=== PATIENT | male | born 1945 | race Caucasian/White ===

== ENCOUNTER 2016-04-20 14:41 | Emergency (ER) | payer BC, MEDICARE ==
[2016-04-20 15:35] VITALS: BMI 30.2
[2016-04-20 15:36] VITALS: BP 174/82; PULSE 83; TEMP 97.8
--- NOTE | 2016-04-20 16:11 | DIRPT ---
CLINICAL DATA: Patient status post fall from the ice. Initial encounter. EXAM: LEFT ANKLE COMPLETE - 3+ VIEW COMPARISON: None FINDINGS: There is a displaced oblique fracture through the medial malleolus. There is oblique fracture through distal fibula with mild displacement. Additionally on the lateral view there is suggestion of possible fracture involving the posterior aspect of the distal tibia. Marked overlying soft tissue swelling. Tailor dome appears intact. Widening of the medial clear space suggestive of ligamentous injury. IMPRESSION: Oblique fracture through medial malleolus. Oblique fracture through the distal fibula. Possible fracture through the posterior aspect distal tibia. Overall findings raise the possibility of a trimalleolar ankle fracture. Electronically Signed By: Jame Desai M.D. On: 04/20/2016 16:09
[2016-04-20] MEDS ORDERED: HYDROmorphone 1 MG INJECTION IM ONE ×2 (16:21→17:53)
--- NOTE | 2016-04-20 16:32 | DIRPT ---
CLINICAL DATA: Fell on ice today, ankle pain on the left EXAM: LEFT TIBIA AND FIBULA - 2 VIEW COMPARISON: 04/20/2016 FINDINGS: Known distal tibia fracture not included on this study. More proximal aspects of the tibia and fibula above the ankle are intact. IMPRESSION: Negative Electronically Signed By: Juan Pablo Siddiqui M.D. On: 04/20/2016 16:30
[2016-04-20] MEDS ORDERED: OXYCODONE HCL 5 MG TABLET PO ONE (17:30)
--- NOTE | 2016-04-20 17:33 | EDPRACDOC ---
- General Information Chief Complaint: Ankle Pain Stated Complaint: FALL (LEG INJURY) Time Seen by Provider: 04/20/16 16:03 Information Source: Patient Mode of Arrival: Car Home Medications: Home Medications Aspirin [Aspirin EC] 325 mg PO DAILY 01/26/15 Budesonide/Formoterol Fumarate [Symbicort 160-4.5 Mcg Inhaler] 01/26/15 Diltiazem HCl [Diltiazem 24Hr ER] 180 mg PO DAILY 01/26/15 Gemfibrozil [Lopid] 600 mg PO BID 01/26/15 Hydrochlorothiazide 25 mg PO DAILY 01/26/15 Multivitamin [Multiple Vitamins] 1 each PO DAILY 01/26/15 Dawson-3 Fatty Acids/Fish Oil [Fish Oil 1,000 mg Capsule] 1 tab PO BID 01/26/15 Omeprazole 40 mg PO BID 01/26/15 Pravastatin Sodium 40 mg PO HS 01/26/15 Oxycodone Immediate Release [Oxycodone Immediate Release (OxyIR)] 5 mg PO Q6H PRN #30 tab 04/20/16 Allergies/Adverse Reactions: Allergies Allergy/AdvReac Type Severity Reaction Status Date / Time No Known Allergies Allergy Verified 04/20/16 15:34 - History of Present Illness Onset: 1 HOUR HPI: PT PRESENT WITH LEFT ANKLE PAIN AND SWELLING AFTER HE FELL ON THE ICE THIS AM WHILE WALKING THE DOG Ankle Problem Location: Reports: Left, Medial, Lateral Mechanism: Reports: Inversion, Eversion Circumstances: Reports: Fall Tetanus Up To Date?: No Able to Bear Weight: No Pain Severity: Reports: Moderate Associated Signs & Symptoms: Reports: Bruising, Swelling ED Past Medical History - History Reviewed Yes Nurses notes reviewed and agree except as marked - Patient Medical History Cardiac History: Reports: Hypertension, Hypercholesterolemia Psychological History: Denies: Depression - Family Medical History Reports: Hypertension, Diabetes (MOM), Cancer (BROTHER/MELANOMA). Denies: Stroke, Cardiac Disorders - Social Medical History Smoking Status: Never smoker EDM Review of Systems - Review of Systems ROS Negative Except as Marked: Yes All systems reviewed and were negative except as marked - Physical Exam Constitutional: Alert Oriented to: Time, Person, Place Last recorded Vital Signs: Last Vital Signs Temp 97.8 F 04/20/16 15:34 Pulse 83 04/20/16 15:34 Resp 20 04/20/16 15:34 BP 174/82 04/20/16 15:34 Pulse Ox 96 04/20/16 15:34 Oxygen Pulse Oxygen Saturation 96 O2 Device Oxygen Flow Rate Fraction of Inspired Oxygen ( FIO2) - HEENT Head: Normal ( normocephalic) Eye Exam: Normal (PERRL, EOMI, Sclera white) Oropharynx: Normal (Pharynx:Moist without exudate,Gums-no swelling) Nose: No Symptoms Reported (septum midline) Neck: Normal (FROM, trachea at midline) - Respiratory/Cardiovascular Respiratory: Normal - CTA (BBS clear to auscultation without adventitious sounds ) Cardiovascular: Normal (RRR without murmur, gallop or rub) - GI Auscultation: Normal (NABS) Palpation: Normal (Soft,No rebound or guarding, non distended) Tenderness: Non tender Leiva's Sign: Negative Rectal Exam: Deferred - Musculoskeletal Back: Normal (Non-Tender) Extremities: Normal (Normal tone, Pulses 2+ No cyanosis or edema, FROM) - Integumentary Skin: Normal, Warm, Dry Lymphatics: Normal (no adenopathy) - Neurologic Memory Impaired: Normal Motor Function: Normal (Normal tone, Pulses 2+ No cyanosis or edema, FROM) Cranial Nerve: Normal (CN II-X11 intact sensation, strength 5/5) Cerebellar: Normal Mood Description: Normal Perception: Normal ED Ankle Problem Phys Exam - Musculoskeletal Ankle: Swelling, Deformity, Limited ROM, Moderate Tenderness Achilles Tendon: Normal Knee: Normal Lower Leg: Normal Foot: Normal Distal Function/Circulation: Normal - Integumentary Skin: Normal Lymphatics: Normal ED Procedures - Splinting LEFT ANKLE Location: LEFT AKLE Hand-Made Type: orthoglass Splint: POSTERIOR SHORT LEG AND STIRRUP Pre-Proc Neuro Vasc Exam: normal Post-Proc Neuro Vasc Exam: normal, unchanged from pre-exam Other Devices: Crutches - Differential Diagnosis Fibula Fracture, Tibia Fracture Decision Time to Discharge: 17:36 - Departure Disposition: Home Condition: Stable Final Diagnosis: Ankle Fracture Instructions: RICE: Routine Care for Injuries, Ankle Fracture (ED) Education/Counseling Given To: Patient Education/Counseling Given Regarding: Diagnosis, Treatment, Prognosis, Follow Up Prescriptions: Oxycodone Immediate Release [Oxycodone Immediate Release (OxyIR)] 5 mg PO Q6H PRN #30 tab PRN Reason: Pain Additional Instructions: [facility] [phone] [facility] Address: [address], [place] [address] ICE AND ELEVATION IS VERY IMPORTANT. NO WEIGHT BEARING!!!! RETURN TO THE ED FOR WORSENING SYMPTOMS OR CONCERNS
== END 2016-04-20 18:17 | disposition home or self-care (01) ==
LOC: EDMC 14:41
DX: S82.892A Other fracture of left lower leg, initial encounter for closed fracture (principal); W00.0XXA Fall on same level due to ice and snow, initial encounter; Y93.K1 Activity, walking an animal
CPT/HCPCS: 29515; 73590; 73610; 96372; 99283; J1170